=== PATIENT | female | born 1975 | race Caucasian/White ===

== ENCOUNTER 2016-12-16 15:02 | Emergency (ER) | payer OTHER ==
[~2016-12-16] VITALS: Ht 160 cm; Wt 69.4 kg
--- NOTE | 2016-12-16 17:00 | RADIOLOGY REPORT ---
EXAMINATION: XR KNEE, LEFT CLINICAL INFORMATION: Left knee pain and swelling after fall. COMPARISON: None. TECHNIQUE: Left knee, 4 views FINDINGS: Bones have normal alignment and the joint spaces are maintained. There are small marginal osteophytes of the patella. No evidence of patellar fracture or subluxation. There is enthesophyte formation at the upper pole the patella. Mild soft tissue swelling is present within the infrapatellar region. A trace amount of fluid is present in the suprapatellar bursa. IMPRESSION: 1. No acute osseous injury at the left knee. 2. Minimal osteoarthrosis of the patellofemoral joint. 3. Mild soft tissue swelling in the infrapatellar region.
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
[2016-12-16 18:52] VITALS: BP 140/80
== END 2016-12-16 18:53 ==
LOC: ERH 15:02
DX: M25.562 Pain in left knee (principal)
CPT/HCPCS: 73562-LT